=== PATIENT | male | born 1965 | race African-American/Black ===

== ENCOUNTER 2018-07-05 10:44 | Emergency (ER) | payer BC ==
[2018-07-05 10:54] VITALS: BP 147/89; PULSE 89; TEMP 98; BMI 28.1
[2018-07-05] MEDS ORDERED: KETOROLAC TROMETHAMINE 60 MG/2 ML VIAL IM ONE (11:14)
[2018-07-05] MEDS ORDERED: KETOROLAC TROMETHAMINE 60 MG/2 ML VIAL ONE (11:18)
--- NOTE | 2018-07-05 11:18 | PDOC ---
History of Present Illness - General Chief Complaint: Back Pain Stated Complaint: BACK PAIN Time Seen by Provider: 07/05/18 11:08 - History of Present Illness Initial Comments: 07/05/18 11:14 53-year-old male with a past medical history significant for hypertension and dyslipidemia presents for atraumatic onset of lower back pain without radicular symptoms 2 days. Past History - Past Medical History Allergies/Adverse Reactions: Allergies Allergy/AdvReac Type Severity Reaction Status Date / Time No Known Allergies Allergy Verified 07/05/18 10:52 Home Medications: Ambulatory Orders Cyclobenzaprine HCl [Flexeril 10 mg] 10 mg PO HS PRN #10 tablet 07/05/18 COPD: No HTN: Yes Hypercholesterolemia: Yes - Immunization History Immunization Up to Date: Yes - Suicide/Smoking/Psychosocial Hx Smoking History: Never smoked Hx Alcohol Use: No Drug/Substance Use Hx: No Review of Systems - Review of Systems : No: Incontinence Musculoskeletal: Yes: Back Pain Neurological: No: Numbness, Paresthesia, Tingling *Physical Exam - Vital Signs Last Vital Signs Temp Pulse Resp BP Pulse Ox 98.0 F 89 18 147/89 99 07/05/18 10:52 07/05/18 10:52 07/05/18 10:52 07/05/18 10:52 07/05/18 10:52 - Physical Exam Comments: 07/05/18 11:15 Lumbar spine skin color and temperature are normal range of motion is limited secondary to stiffness and pain. There is no midline tenderness mild to moderate bilateral lumbar musculature tenderness and spasm. 5 out of 5 strength in bilateral lower extremities without gross sensorimotor deficits negative straight leg raise test bilaterally neurovascularly intact. Thighs and calves are soft and nontender. Moderate Sedation - Procedure Monitoring Vital Signs: Procedure Monitoring Vital Signs Temperature 98.0 F 07/05/18 10:52 Pulse Rate 89 07/05/18 10:52 Respiratory Rate 18 07/05/18 10:52 Blood Pressure 147/89 07/05/18 10:52 O2 Sat by Pulse Oximetry (%) 99 07/05/18 10:52 *DC/Admit/Observation/Transfer Diagnosis at time of Disposition: Lumbar strain - Discharge Dispostion Disposition: HOME Condition at time of disposition: Improved Decision to Admit order: No - Prescriptions Prescriptions: Cyclobenzaprine HCl [Flexeril 10 mg] 10 mg PO HS PRN #10 tablet PRN Reason: Muscle Spasms - Referrals Referrals: Olga Lidia Mcfarland [Primary Care Provider] - Joe Marroquin MD [Staff Physician] - - Patient Instructions Printed Discharge Instructions: Low Back Pain, DI for Low Back Pain Additional Instructions: He may continue to take her prescribed Naprosyn and other medications as scheduled. Return to the emergency room should symptoms worsen or go unresolved. I prescribed for you a muscle relaxer which is one tablet before bedtime. Will make you sleepy. Return to the emergency room should symptoms worsen or go unresolved follow-up with spine surgery in 1-2 days for further evaluation and treatment options. - Post Discharge Activity
== END 2018-07-05 12:04 | disposition home or self-care (01) ==
LOC: JERFT 10:44
PROC: 3E0233Z Introduction of Anti-inflammatory into Muscle, Percutaneous Approach (ICD-10-PCS; principal; 2018-07-05)
DX: S39.012A Strain of muscle, fascia and tendon of lower back, initial encounter (principal); I10 Essential (primary) hypertension; E78.00 Pure hypercholesterolemia, unspecified; X58.XXXA Exposure to other specified factors, initial encounter; Y93.89 Activity, other specified; Y92.89 Other specified places as the place of occurrence of the external cause; Y99.8 Other external cause status
CPT/HCPCS: 99281-25

== ENCOUNTER 2022-12-20 19:31 | Emergency (ER) | payer BC ==
[2022-12-20 19:47] VITALS: RESP 20; TEMP 98; BMI 28.1
[2022-12-20] MEDS ORDERED: CEFAZOLIN 1 GM in DEXTROSE 5%-WATER - 50 ML IVPB ONE (21:01)
[2022-12-20] MEDS ORDERED: GENTAMICIN INJECTION 100 MG in SODIUM CHLORIDE 97.5 ML IVPB ONE (21:02)
[2022-12-20] MEDS ORDERED: ceFAZolin SODIUM 1 GM VIAL ONE (21:11)
[2022-12-20] MEDS ORDERED: GENTAMICIN SO4 80 MG/2 ML VIAL ONE (21:12)
[2022-12-20 21:29] VITALS: BP 150/92; PULSE 92
== END 2022-12-20 22:40 | disposition home or self-care (01) ==
LOC: JER 19:31 → JERFT 19:31
PROC: 0HQGXZZ Repair Left Hand Skin, External Approach (ICD-10-PCS; principal; 2022-12-20)
PROC: 3E03329 Introduction of Other Anti-infective into Peripheral Vein, Percutaneous Approach (ICD-10-PCS; 2022-12-20)
PROC: 3E03329 Introduction of Other Anti-infective into Peripheral Vein, Percutaneous Approach (ICD-10-PCS; 2022-12-20)
DX: S62.601A Fracture of unspecified phalanx of left index finger, initial encounter for closed fracture (principal); W29.3XXA Contact with powered garden and outdoor hand tools and machinery, initial encounter
CPT/HCPCS: 73130-TC-LT-FY; 99284-25

== ENCOUNTER 2023-04-27 23:33 | Emergency (ER) | payer BC ==
[2023-04-27 23:59] VITALS: BP 169/92; PULSE 90; RESP 18; TEMP 98.3; BMI 29.0
== END 2023-04-28 01:33 | disposition home or self-care (01) ==
LOC: JER 23:33
DX: R22.32 Localized swelling, mass and lump, left upper limb (principal)
CPT/HCPCS: 99282-25